=== PATIENT | male | born 1980 | race Caucasian/White ===

== ENCOUNTER → 2018-01-05 | Day surgery (SDC) | payer MEDICAID ==
[~2018-01-05] MED LIST: FLUMAZENIL 0.5 MG/5 ML MDV IVP PRN; MIDAZOLAM 2 MG/2 ML VIAL IVP PRN; NALOXONE HCL 0.4 MG/ML INJ IVP PRN; NS 1,000 ML IV SCH; TRIAMCINOLONE ACETONIDE 200 MG/5 ML MDV IM ONE; fentaNYL 100 MCG/2 ML INJ IVP PRN
--- NOTE | 2018-01-05 13:36 | PDGENHP ---
History & Physical Chief Complaint: recurrent LBP History of Present Illness: RT inner thigh pain, LT inner thigh, both hips, RT chin, bilaterl lateral thigh numbness. Pertinent Past, Social, Family History: previous injections at L4-5 helped. Relevant Physical Exam: In no distress, but 8/10 pain Cardiorespiratory Assessment: rrr, cta
--- NOTE | 2018-01-05 13:37 | PDPROPOC ---
Sedation Plan of Care Sedation Plan of Care: vital signs stable, mental status noted, patient educated of risks, benefits, alternatives, patient can tolerate sedation ASA Classification: ASA 2 Planned drugs: fentanyl, midazolam Mallampati Score: Class 1 Mallampati Reference Image: Patient passed 3-3-2 rule?: Yes
[2018-01-05 15:32] VITALS: BP 102/57
--- NOTE | 2018-01-05 19:14 | PDRADPN ---
Radiology Procedure Note Date of Procedure: 01/05/18 Radiologist: Swathi Pool Pre-op Diagnosis: LBP Post-op Diagnosis: same Procedure: L3-4 EUNICE Inf/Abcess present in the surg proc area at time of surgery?: No
== END ==
LOC: FIMAGING 12:30
PROVIDERS: ATTEND Neurological Surgery
PROC: 3E0S33Z Introduction of Anti-inflammatory into Epidural Space, Percutaneous Approach (ICD-10-PCS; principal; 2018-01-05 14:35)
PROC: 3E0S3BZ Introduction of Anesthetic Agent into Epidural Space, Percutaneous Approach (ICD-10-PCS; principal; 2018-01-05 14:35)
DX: M54.5 Low back pain (principal); M79.604 Pain in right leg; M79.605 Pain in left leg; M51.36 Other intervertebral disc degeneration, lumbar region; M47.896 Other spondylosis, lumbar region
CPT/HCPCS: J2250; J2310; J3010; J3301